=== PATIENT | male | born 1990 | race Caucasian/White ===

== ENCOUNTER → 2023-06-10 | Outpatient (CLI) | payer BC ==
[2023-06-10 14:53] LABS: BASOPHILS % (AUTO) 0 % (0-10); EOSINOPHILS # (AUTO) 0.1 10^3/uL (0.0-0.3); EOSINOPHILS % (AUTO) 1 % (0-10); HEMATOCRIT 47 % (40-54); HEMOGLOBIN 16.3 g/dL (13.3-17.7); LYMPHOCYTES % (AUTO) 25 % (12-44); MEAN CORPUSCULAR HEMOGLOBIN 32 pg (25-34); MEAN CORPUSCULAR HGB CONC 35 g/dL (32-36); MEAN CORPUSCULAR VOLUME 91 fL (80-99); MONOCYTES # (AUTO) 1.1 10^3/uL (0.0-1.0); MONOCYTES % (AUTO) 9 % (0-12); NEUTROPHILS # (AUTO) 7.4 10^3/uL (1.8-7.8); NEUTROPHILS % (AUTO) 62 % (42-75); PLATELET COUNT 239 10^3/uL (130-400); WHITE BLOOD COUNT 12.1 10^3/uL (4.3-11.0)
[2023-06-10 15:04] LABS: CHLORIDE 101 MMOL/L (98-107); SODIUM 137 MMOL/L (135-145)
[2023-06-10 15:05] LABS: CALCIUM 8.8 MG/DL (8.5-10.1)
[2023-06-10 15:06] LABS: GLUCOSE 101 MG/DL (70-105)
[2023-06-10 15:07] LABS: TOTAL PROTEIN 7.1 GM/DL (6.4-8.2)
[2023-06-10 15:08] LABS: BILIRUBIN,TOTAL 0.3 MG/DL (0.1-1.0); CARBON DIOXIDE 25 MMOL/L (21-32)
[2023-06-10 15:10] LABS: ALKALINE PHOSPHATASE 65 U/L (40-136); CREATININE SERUM 1.42 MG/DL (0.60-1.30); GFR ESTIMATED 67
[2023-06-10 15:11] LABS: BUN/CREATININE RATIO 11
[2023-06-10 15:13] LABS: ALANINE AMINOTRANSFERASE 36 U/L (0-55); CREATINE KINASE 136 U/L (30-200)
[2023-06-10 15:19] LABS: CREATINE KINASE MB 1.7 NG/ML (<6.6)
== END ==
LOC: LAB 14:27
PROVIDERS: ATTEND Nurse Practitioner Family
DX: R53.83 Other fatigue (principal); R61 Generalized hyperhidrosis; R53.1 Weakness; U09.9 Post COVID-19 condition, unspecified; I49.9 Cardiac arrhythmia, unspecified
CPT/HCPCS: 36415; 80053; 82550; 82553; 83880; 84484; 85025; 85379